=== PATIENT | female | born 1985 | race Caucasian/White ===

== ENCOUNTER 2018-05-06 02:11 | Emergency (ER) | payer BC ==
[~2018-05-06] VITALS: Ht 157.5 cm; Wt 110.0 kg
[~2018-05-06 02:11] MED LIST: ACET-2619
[2018-05-06 02:20] VITALS: BP 127/73
--- NOTE | 2018-05-06 02:20 | NUR ---
AMBULATED TO ER BED 4
--- NOTE | 2018-05-06 02:22 | NUR ---
Patient being evaluated by physician at bedside.
--- NOTE | 2018-05-06 02:31 | NUR ---
Influenza swab collected and sent to lab.
--- NOTE | 2018-05-06 02:32 | NUR ---
32/F presents to ED with complaints of chest pain x 3 days with a cough and fever. Pt found lying in rary bed 4, NAD noted. Pt also c/o congestion.
--- NOTE | 2018-05-06 02:44 | NUR ---
X-Ray at bedside.
[2018-05-06] MEDS ORDERED: OSELTAMIVIR PHOSPHATE 75 MG CAP PO ONE (03:00)
[2018-05-06] MEDS ORDERED: KETOROLAC 30 MG/ML VIAL IM ONE (03:05)
[2018-05-06 03:28] VITALS: BP 127/73
--- NOTE | 2018-05-06 03:28 | NUR ---
Patient discharged with v/s stable. Written and verbal after care instructions given and explained. Patient alert, oriented and verbalized understanding of instructions. Ambulatory with steady gait. All questions addressed prior to discharge. ID band removed. Patient advised to follow up with PMD. Rx of Tamiflu given. Work excuse provided until 05/09/18. Patient educated on indication of medication including possible reaction and side effects. Opportunity to ask questions provided and answered.
== END 2018-05-06 03:28 | disposition home or self-care (01) ==
LOC: MED 02:11
DX: J11.1 Influenza due to unidentified influenza virus with other respiratory manifestations (principal); Z79.899 Other long term (current) drug therapy
CPT/HCPCS: 36415; 71045; 87804; 96372; 99284; J1885; Q0092